=== PATIENT | female | born 1950 | race Caucasian/White ===

== ENCOUNTER → 2016-10-24 | Outpatient (CLI) | payer OTHER | LOC: KOH-I 08:00 | DX: R94.4 Abnormal results of kidney function studies (principal); K76.0 Fatty (change of) liver, not elsewhere classified | CPT/HCPCS: 76705 ==

== ENCOUNTER 2016-10-31 15:47 | Emergency (ER) | payer OTHER | END 2016-10-31 17:30 | disposition left against medical advice (07) | LOC: ER1 15:47 | DX: Z53.21 Procedure and treatment not carried out due to patient leaving prior to being seen by health care provider (principal) ==

== ENCOUNTER 2020-10-12 13:02 | Inpatient (IN) | payer OTHER ==
[~2020-10-12] VITALS: Ht 157.5 cm; Wt 70.3 kg
[2020-10-12 17:05] LABS: HEMOGLOBIN 16.8 gm/dl (12.3-15.3); RED BLOOD COUNT 5.18 M/UL (4.00-5.10); WHITE BLOOD COUNT 6.7 K/UL (4.5-11.0)
[2020-10-12 17:25] LABS: BUN/CREATININE RATIO 26 (0-10)
[2020-10-12] MEDS ORDERED: HYGROTON TAB 2525 MG PO (22:04)
[2020-10-12] MEDS ORDERED: LOSARTAN POTAS100 MG PO (22:05)
[2020-10-12] MEDS ORDERED: CINNAMON PLUS1 EACH PO (22:07)
[2020-10-12] MEDS ORDERED: MULTIPLE VITAM1 EAC1 PO (22:08)
[2020-10-12] MEDS ORDERED: MEGA BIOTIN10000 MCG PO (22:09)
[2020-10-12] MEDS ORDERED: B12 ACTIVE1000 MCG PO (22:10)
[2020-10-12] MEDS ORDERED: VITAMIN C1000 MG PO (22:10)
[2020-10-12] MEDS ORDERED: ASPIRIN 325MG325 MG PO (22:11)
[2020-10-13 02:10] LABS: HEMOGLOBIN 15.4 gm/dl (12.3-15.3); RED BLOOD COUNT 4.77 M/UL (4.00-5.10); WHITE BLOOD COUNT 6.8 K/UL (4.5-11.0)
[2020-10-13 02:38] LABS: BUN/CREATININE RATIO 22 (0-10)
[2020-10-13] MEDS ORDERED: K-DUR TAB 20 M20 MEQ PO (06:14)
[2020-10-14] MEDS ORDERED: ASPIRIN EC81 MG PO (08:42)
[2020-10-14] MEDS ORDERED: ATORVASTATIN CA20 MG PO (08:42)
[2020-10-15 03:29] LABS: BUN/CREATININE RATIO 26 (0-10)
[2020-10-16] MEDS ORDERED: KEPPRA 500 MG500 MG PO (09:40)
[2020-10-16] MEDS ORDERED: CLOPIDOGREL75 MG PO (09:43)
== END 2020-10-16 13:05 | disposition home or self-care (01) | DRG 101 ==
LOC: ER1 13:02 → PROG CARE 17:30 → CDU 17:30 → PROG CARE 21:00 → M/S 10-15 13:33
PROVIDERS: Family Medicine; Physician Assistant; ADMIT Internal Medicine
PROC: B24BZZ4 Ultrasonography of Heart with Aorta, Transesophageal (ICD-10-PCS; principal; 2020-10-13)
DX: G40.909 Epilepsy, unspecified, not intractable, without status epilepticus (principal); I65.23 Occlusion and stenosis of bilateral carotid arteries; H53.8 Other visual disturbances; D50.9 Iron deficiency anemia, unspecified; I10 Essential (primary) hypertension; Z20.822 Contact with and (suspected) exposure to COVID-19; Z86.711 Personal history of pulmonary embolism; Z79.01 Long term (current) use of anticoagulants; Z86.718 Personal history of other venous thrombosis and embolism; Z79.82 Long term (current) use of aspirin; Z85.3 Personal history of malignant neoplasm of breast; I25.2 Old myocardial infarction; Z90.13 Acquired absence of bilateral breasts and nipples; Z82.3 Family history of stroke; Z85.820 Personal history of malignant melanoma of skin
CPT/HCPCS: ECHO; 36415; 70450; 70496; 70498; 70551; 71045; 80048; 80053; 81001; 82550; 82553; 82962; 83874; 84484; 85025; 85610; 85730; 93005; 93306; 96372; 96374; 99285; G0378; J1650; J2405; Q9967; U0002

== ENCOUNTER 2021-06-07 10:16 | Emergency (ER) | payer OTHER ==
[~2021-06-07 10:16] MED LIST: ASPIRIN 325MG325 MG PO; ASPIRIN EC81 MG PO; ATORVASTATIN CA20 MG PO; B12 ACTIVE1000 MCG PO; CINNAMON PLUS1 EACH PO; CLOPIDOGREL75 MG PO; HYGROTON TAB 2525 MG PO; K-DUR TAB 20 M20 MEQ PO; KEPPRA 500 MG500 MG PO; LOSARTAN POTAS100 MG PO; MEGA BIOTIN10000 MCG PO; MULTIPLE VITAM1 EAC1 PO; VITAMIN C1000 MG PO
[2021-06-07 11:49] LABS: HEMOGLOBIN 15.9 gm/dl (12.3-15.3); RED BLOOD COUNT 4.98 M/UL (4.00-5.10); WHITE BLOOD COUNT 7.5 K/UL (4.5-11.0)
[2021-06-07 12:36] LABS: BUN/CREATININE RATIO 21 (0-10)
== END 2021-06-07 15:00 ==
LOC: ER1 10:16
PROVIDERS: Physician Assistant
DX: S12.100A Unspecified displaced fracture of second cervical vertebra, initial encounter for closed fracture (principal); I25.2 Old myocardial infarction; I10 Essential (primary) hypertension; Z85.3 Personal history of malignant neoplasm of breast; X58.XXXA Exposure to other specified factors, initial encounter
CPT/HCPCS: 70450; 71045; 72125; 73030; 80053; 82550; 82553; 83874; 84484; 85025; 93005; 96374; 99285

== ENCOUNTER → 2021-09-21 | Outpatient (CLI) | payer OTHER | LOC: KOH-I 09:30 | DX: S12.100A Unspecified displaced fracture of second cervical vertebra, initial encounter for closed fracture (principal); S19.9XXS Unspecified injury of neck, sequela; M43.12 Spondylolisthesis, cervical region | CPT/HCPCS: 72125 ==

== ENCOUNTER → 2021-09-22 | Outpatient (CLI) | payer OTHER | LOC: EXRD 13:25 | DX: M81.0 Age-related osteoporosis without current pathological fracture (principal); M85.89 Other specified disorders of bone density and structure, multiple sites | CPT/HCPCS: 77080 ==

== ENCOUNTER → 2021-10-28 | Outpatient (CLI) | payer OTHER | LOC: KOH-I 14:30 | DX: S12.9XXA Fracture of neck, unspecified, initial encounter (principal); M48.02 Spinal stenosis, cervical region | CPT/HCPCS: 72141 ==